=== PATIENT | male | born 1985 | race African-American/Black ===

== ENCOUNTER → 2017-12-04 | Outpatient (CLI) | payer OTHER | LOC: M RAD 17:38 | DX: R82.90 Unspecified abnormal findings in urine (principal) | CPT/HCPCS: 74176 ==

== ENCOUNTER → 2018-02-24 | Outpatient (CLI) | payer OTHER | LOC: M RAD 06:09 | DX: R10.11 Right upper quadrant pain (principal); K76.0 Fatty (change of) liver, not elsewhere classified ==

== ENCOUNTER 2018-02-27 10:10 | Day surgery (SDC) | payer OTHER ==
[2018-02-27] MEDS: NS 1,000 ML IV (10:15)
== END 2018-02-27 14:11 | disposition home or self-care (01) ==
LOC: M OPP 14:11
DX: K52.9 Noninfective gastroenteritis and colitis, unspecified (principal); D12.5 Benign neoplasm of sigmoid colon; K64.8 Other hemorrhoids; K92.1 Melena; R06.83 Snoring; Z79.899 Other long term (current) drug therapy; Z86.19 Personal history of other infectious and parasitic diseases; Z87.19 Personal history of other diseases of the digestive system
CPT/HCPCS: 45380